=== PATIENT | male | born 1985 | race Caucasian/White ===

== ENCOUNTER 2024-01-24 09:37 | Inpatient (IN) | payer MEDICAID ==
[~2024-01-24] VITALS: Ht 172.7 cm; Wt 83.8 kg
[2024-01-24 10:41] LABS: BASOPHILS % (AUTO) 0.7 % (0-1); EOSINOPHILS # (AUTO) 0.1 X10'3 (0-0.9); EOSINOPHILS % (AUTO) 1.7 % (0-6); HEMATOCRIT 41.1 % (42.0-52.0); LYMPHOCYTES # (AUTO) 2.1 X10'3 (1.1-4.8); LYMPHOCYTES % (AUTO) 33.7 % (21-51); MEAN CORPUSCULAR HEMOGLOBIN 31.3 PG (27.0-31.0); MEAN PLATELET VOLUME 7.4 FL (7.4-10.4); MONOCYTES # (AUTO) 0.5 X10'3 (0-0.9); MONOCYTES % (AUTO) 8.3 % (2-12); NEUTROPHILS # (AUTO) 3.5 X10'3 (1.8-7.7); NEUTROPHILS % (AUTO) 55.6 % (42-75); PLATELET COUNT 248 X10'3 (140-440); RED BLOOD COUNT 4.47 X10'6 (4.70-6.10); RED CELL DISTRIBUTION WIDTH 14.3 % (11.5-14.5); WHITE BLOOD COUNT 6.2 X10'3 (4.5-11.0)
[2024-01-24 11:40] LABS: ALBUMIN 3.6 G/DL (3.4-5.0); ANION GAP 7 (8-16); BLOOD UREA NITROGEN 17 MG/DL (7-18); CALCIUM 8.5 MG/DL (8.5-10.1); CHLORIDE 104 MMOL/L (99-107); CREATININE 0.74 MG/DL (0.60-1.10); ETHANOL < 10 MG/DL (<10); GLUCOSE 96 MG/DL (70-104); POTASSIUM 3.5 MMOL/L (3.5-5.1); SODIUM 141 MMOL/L (135-145); THYROID STIMULATING HORMONE 0.76 ulU/ml (0.34-4.50); TOTAL CARBON DIOXIDE 29.8 MMOL/L (24-32); eCRCL 130 ML/MIN; eGFR > 90 ML/MIN
[2024-01-24 15:27] LABS: BILIRUBIN,URINE NEGATIVE (Neg); CLARITY,URINE CLEAR (Clear); COLOR,URINE YELLOW (Yellow); GLUCOSE, URINE NEGATIVE (Neg); KETONES,URINE NEGATIVE (Neg); LEUKOCYTE ESTERASE ,URINE NEGATIVE (Neg); NITRITES, URINE NEGATIVE (Neg); OCCULT BLOOD,URINE NEGATIVE (Neg); PROTEIN,URINE TRACE mg/dl (Neg)
[2024-01-24 15:29] LABS: UA COLLECTION TYPE CLN CATCH MIDSTREAM
[2024-01-24 15:34] LABS: MUCUS STRANDS FEW /LPF (Neg)
[2024-01-24 15:35] LABS: BACTERIA,URINE NONE SEEN /HPF (Neg); RBC,URINE 0-2 /HPF (0-2); SQUAMOUS EPITHELIAL CELL,UR FEW /LPF (FEW); WBC,URINE 0-4 /HPF (0-4)
[2024-01-24 15:44] LABS: URINE AMPHETAMINE SCREEN POSITIVE (Neg); URINE BARBITUATE SCREEN NEGATIVE (Neg); URINE BENZODIAZEPINES SCREEN NEGATIVE (Neg); URINE CANNABINOID SCREEN NEGATIVE (Neg); URINE COCAINE SCREEN NEGATIVE (Neg); URINE METHADONE SCREEN NEGATIVE (Neg); URINE OPIATE SCREEN NEGATIVE (Neg); URINE PHENCYCLIDINE SCREEN NEGATIVE (Neg)
[2024-01-24] MEDS: OLANZapine 5mg rapidly disint. tablet PO ONE (18:55)
[2024-01-24] MEDS ORDERED: NO HOME MEDS (21:01)
[2024-01-25 13:30] VITALS: BP 104/65; PULSE 75; RESP 16; TEMP 97.5; O2SAT 100
[2024-01-25] MEDS ORDERED: mag hydrox/Alum hydrox/simeth 30ml oral suspension PO PRN (13:50)
[2024-01-25] MEDS ORDERED: magnesium hydroxide 30ml (MOM) UD suspension PO PRN (13:50)
[2024-01-25] MEDS ORDERED: loperamide 2mg capsule PO PRN (13:50)
[2024-01-25] MEDS ORDERED: acetaminophen 325mg tablet PO PRN (13:50)
[2024-01-25 14:21] VITALS: RESP 16; O2SAT 100
[2024-01-25 19:00] VITALS: RESP 16; O2SAT 99
[2024-01-25 19:44] VITALS: BP 104/63; PULSE 86; RESP 20; TEMP 97.9; O2SAT 99
[2024-01-26 07:00] VITALS: RESP 16; O2SAT 99
[2024-01-26 08:00] VITALS: BP 113/53; PULSE 70; RESP 16; TEMP 97.4; O2SAT 99
[2024-01-26 09:18] LABS: HEMOGLOBIN A1C 5.6 % (4.5-6.2)
[2024-01-26 09:24] LABS: CHOL/HDL RATIO 2.7 (0.00-4.99); CHOLESTEROL 139 MG/DL (0-200); HDL CHOLESTEROL 52 MG/DL (35-60); LDL CHOLESTEROL 79 MG/DL (50-100); TRIGLYCERIDES 95 MG/DL (20-135)
[2024-01-26 19:00] VITALS: BP 117/65; PULSE 78; RESP 18; TEMP 97.9; O2SAT 96; O2SAT 98
[2024-01-26] MEDS: acetaminophen 325mg tablet PO PRN (19:29)
[2024-01-27 07:00] VITALS: RESP 16; O2SAT 95
[2024-01-27 08:00] VITALS: BP 110/89; PULSE 84; RESP 16; TEMP 97.7; O2SAT 95
[2024-01-27] MEDS: aripiprazole 10MG tablet PO SCH (10:22)
[2024-01-27 19:00] VITALS: BP 131/76; PULSE 79; RESP 16; TEMP 97.3; O2SAT 96
[2024-01-27] MEDS: traZODone 50mg tablet PO SCH (20:27)
[2024-01-28 07:00] VITALS: RESP 16; O2SAT 95
[2024-01-28 08:00] VITALS: BP 126/84; PULSE 88; RESP 16; TEMP 97.1; O2SAT 97
[2024-01-28 19:00] VITALS: RESP 16; O2SAT 97
[2024-01-28] MEDS: benztropine 1mg tablet PO SCH (19:54)
[2024-01-28 20:00] VITALS: BP 121/80; PULSE 82; RESP 16; TEMP 97.6; O2SAT 97
[2024-01-28] MEDS: traZODone 50mg tablet PO SCH (21:59)
[2024-01-29 07:00] VITALS: RESP 16; O2SAT 96
[2024-01-29 08:00] VITALS: BP 125/86; PULSE 98; RESP 16; TEMP 97.5; O2SAT 96
[2024-01-29 19:54] VITALS: BP 141/87; PULSE 60; RESP 20; TEMP 98.2; O2SAT 98
[2024-01-30 07:00] VITALS: RESP 18; O2SAT 98
[2024-01-30 08:00] VITALS: BP 120/84; PULSE 78; RESP 18; TEMP 97.1; O2SAT 98
[2024-01-30 19:00] VITALS: BP 131/86; PULSE 89; RESP 16; TEMP 97.6; O2SAT 96
[2024-01-30] MEDS: mineral oil/petrolatum, white cream 113gm jar TP SCH (19:41)
[2024-01-31 07:00] VITALS: BP 111/72; PULSE 84; RESP 16; TEMP 97.6; O2SAT 98
[2024-01-31 19:40] VITALS: RESP 18; O2SAT 98
[2024-01-31 20:00] VITALS: BP 113/74; PULSE 92; RESP 16; TEMP 98.6; O2SAT 100
[2024-02-01 07:00] VITALS: BP 127/81; PULSE 85; RESP 16; TEMP 98; O2SAT 98
[2024-02-01] MEDS: aripiprazole 15 MG tablet PO SCH (08:15)
[2024-02-01 19:00] VITALS: BP 109/69; PULSE 81; RESP 16; RESP 18; TEMP 98.7; O2SAT 99
[2024-02-02 07:00] VITALS: RESP 16; O2SAT 98
[2024-02-02 08:00] VITALS: BP 120/71; PULSE 88; RESP 16; TEMP 97.6; O2SAT 98
[2024-02-02 19:53] VITALS: RESP 16; O2SAT 99
[2024-02-02 19:59] VITALS: BP 109/51; PULSE 65; RESP 16; TEMP 98.8; O2SAT 99
[2024-02-03 08:00] VITALS: BP 143/51; PULSE 69; RESP 16; TEMP 97; O2SAT 100
[2024-02-03 19:26] VITALS: BP 118/52; PULSE 76; RESP 20; TEMP 97.7; O2SAT 97
[2024-02-04 07:00] VITALS: RESP 16; O2SAT 98
[2024-02-04 07:22] VITALS: BP 106/82; PULSE 73; RESP 16; TEMP 97.8; O2SAT 98
[2024-02-04 19:00] VITALS: RESP 16; O2SAT 97
[2024-02-04 19:43] VITALS: BP 115/67; PULSE 72; RESP 16; TEMP 98.6; O2SAT 97
[2024-02-05 07:00] VITALS: RESP 16; O2SAT 99
[2024-02-05] MEDS: aripiprazole 10MG tablet PO SCH (07:52)
[2024-02-05 08:00] VITALS: BP 123/84; PULSE 69; RESP 16; TEMP 97.3; O2SAT 99
[2024-02-05 20:00] VITALS: BP 122/76; PULSE 94; RESP 16; TEMP 97.5; O2SAT 96
[2024-02-06 08:00] VITALS: BP 115/80; PULSE 88; RESP 16; TEMP 98.3; O2SAT 97
[2024-02-06 19:51] VITALS: BP 101/68; PULSE 92; RESP 16; TEMP 98.6; O2SAT 98
[2024-02-07 07:00] VITALS: RESP 16; O2SAT 98
[2024-02-07 08:00] VITALS: BP 121/62; PULSE 74; RESP 16; TEMP 98.3; O2SAT 98
[2024-02-07] MEDS: aripiprazole 400mg suspension ER syringe IM ONE (08:53)
[2024-02-07 19:58] VITALS: RESP 16
[2024-02-07 20:53] VITALS: BP 106/58; PULSE 68; RESP 16; TEMP 97.4; O2SAT 98
[2024-02-08 07:00] VITALS: RESP 20; O2SAT 96
[2024-02-08 08:00] VITALS: BP 99/71; PULSE 81; RESP 20; TEMP 97.8; O2SAT 96
[2024-02-08 19:00] VITALS: RESP 16; O2SAT 97
[2024-02-08 20:00] VITALS: BP 108/61; PULSE 74; RESP 16; TEMP 98.1; O2SAT 97
[2024-02-09 07:00] VITALS: RESP 20; O2SAT 97
[2024-02-09 08:00] VITALS: BP 99/73; PULSE 76; RESP 20; TEMP 97.6; O2SAT 97
[2024-02-09 19:00] VITALS: RESP 18; O2SAT 97
[2024-02-09 19:38] VITALS: BP 100/56; PULSE 74; RESP 18; TEMP 98.3; O2SAT 97
[2024-02-10 07:30] VITALS: BP 96/56; PULSE 93; RESP 12; TEMP 97.9; O2SAT 98
[2024-02-10 08:00] VITALS: RESP 12; O2SAT 98
[2024-02-10] MEDS ORDERED: ARIP10TA87 PO (11:08)
[2024-02-10] MEDS ORDERED: TRAZ-251 PO (11:08)
[2024-02-10] MEDS ORDERED: COG1T PO (11:08)
[2024-02-10 19:40] VITALS: RESP 18; O2SAT 100
[2024-02-10 20:00] VITALS: BP 100/61; PULSE 79; RESP 18; TEMP 98.3; O2SAT 97
[2024-02-11 07:30] VITALS: BP 105/60; PULSE 61; RESP 16; TEMP 98.6
[2024-02-11 08:00] VITALS: RESP 16; O2SAT 98
== END 2024-02-11 14:41 | disposition home or self-care (01) | DRG 751 ==
LOC: EDBD 09:38 → ER 09:38 → UNDOADMIN 01-25 12:28 → ED HOLD 01-25 12:28 → ADULT MH 01-25 13:31
PROVIDERS: ADMIT Psychiatry & Neurology Psychiatry; ATTEND Psychiatry & Neurology Psychiatry
PROC: GZHZZZZ Group Psychotherapy (ICD-10-PCS; principal; 2024-01-26)
PROC: GZ51ZZZ Individual Psychotherapy, Behavioral (ICD-10-PCS; 2024-01-26)
DX: F29 Unspecified psychosis not due to a substance or known physiological condition (principal); F15.10 Other stimulant abuse, uncomplicated; M20.42 Other hammer toe(s) (acquired), left foot; Z20.822 Contact with and (suspected) exposure to COVID-19; M20.41 Other hammer toe(s) (acquired), right foot; Z59.00 Homelessness unspecified; Z79.899 Other long term (current) drug therapy
CPT/HCPCS: 36415; 80048; 80061; 80305; 80320; 81001; 83036; 84443; 85025; 87081; 87811; 99285

== ENCOUNTER 2024-02-14 08:10 | Emergency (ER) | payer MEDICAID ==
[~2024-02-14] VITALS: Ht 175.3 cm; Wt 84.7 kg
[~2024-02-14 08:10] MED LIST: ARIP10TA87 PO; COG1T PO; TRAZ-251 PO
[2024-02-14 08:15] VITALS: BP 141/88; PULSE 94; RESP 18; TEMP 97.8; O2SAT 97
[2024-02-14 08:56] LABS: BILIRUBIN,URINE NEGATIVE (Neg); CLARITY,URINE CLEAR (Clear); COLOR,URINE YELLOW (Yellow); GLUCOSE, URINE NEGATIVE (Neg); KETONES,URINE NEGATIVE (Neg); LEUKOCYTE ESTERASE ,URINE NEGATIVE (Neg); NITRITES, URINE NEGATIVE (Neg); OCCULT BLOOD,URINE TRACE-INTACT (Neg); PROTEIN,URINE TRACE mg/dl (Neg); UROBILINOGEN,URINE 0.2 E.U/dL (0.2-1.0)
[2024-02-14 08:57] LABS: BASOPHILS % (AUTO) 0.7 % (0-1); EOSINOPHILS % (AUTO) 0.4 % (0-6); HEMATOCRIT 45.4 % (42.0-52.0); HEMOGLOBIN 15.2 g/dl (14.0-17.9); LYMPHOCYTES # (AUTO) 1.9 X10'3 (1.1-4.8); LYMPHOCYTES % (AUTO) 27.1 % (21-51); MEAN CORPUSCULAR HGB CONC 33.5 g/dL (33.0-36.5); MEAN CORPUSCULAR VOLUME 92.7 FL (78-98); MONOCYTES # (AUTO) 0.4 X10'3 (0-0.9); MONOCYTES % (AUTO) 6.3 % (2-12); NEUTROPHILS # (AUTO) 4.5 X10'3 (1.8-7.7); NEUTROPHILS % (AUTO) 65.5 % (42-75); PLATELET COUNT 383 X10'3 (140-440); RED BLOOD COUNT 4.89 X10'6 (4.70-6.10); RED CELL DISTRIBUTION WIDTH 14.9 % (11.5-14.5); WHITE BLOOD COUNT 6.9 X10'3 (4.5-11.0)
[2024-02-14 09:02] LABS: UA COLLECTION TYPE CLN CATCH MIDSTREAM
[2024-02-14 09:04] LABS: BACTERIA,URINE FEW /HPF (Neg); FINE GRANULAR CAST 0-3 /LPF (NEGATIVE); RBC,URINE 0-2 /HPF (0-2); SQUAMOUS EPITHELIAL CELL,UR FEW /LPF (FEW); URINE AMPHETAMINE SCREEN POSITIVE (Neg); URINE BARBITUATE SCREEN NEGATIVE (Neg); URINE BENZODIAZEPINES SCREEN NEGATIVE (Neg); URINE CANNABINOID SCREEN NEGATIVE (Neg); URINE COCAINE SCREEN NEGATIVE (Neg); URINE METHADONE SCREEN NEGATIVE (Neg); URINE OPIATE SCREEN NEGATIVE (Neg); URINE PHENCYCLIDINE SCREEN NEGATIVE (Neg); WBC,URINE 0-4 /HPF (0-4)
[2024-02-14 09:22] LABS: ALBUMIN 4.1 G/DL (3.4-5.0); ANION GAP 9 (8-16); BLOOD UREA NITROGEN 16 MG/DL (7-18); BUN/CREATININE RATIO 18.8 (10.0-20.0); CALCIUM 9.3 MG/DL (8.5-10.1); CHLORIDE 104 MMOL/L (99-107); CREATININE 0.85 MG/DL (0.60-1.10); ETHANOL < 10 MG/DL (<10); GLUCOSE 94 MG/DL (70-104); POTASSIUM 3.8 MMOL/L (3.5-5.1); SODIUM 142 MMOL/L (135-145); THYROID STIMULATING HORMONE 1.72 ulU/ml (0.34-4.50); TOTAL CARBON DIOXIDE 28.6 MMOL/L (24-32); eCRCL 116 ML/MIN; eGFR > 90 ML/MIN
== END 2024-02-14 12:09 | disposition home or self-care (01) ==
LOC: ER 08:11
DX: F32.A Depression, unspecified (principal); F29 Unspecified psychosis not due to a substance or known physiological condition; Z88.6 Allergy status to analgesic agent; Z20.822 Contact with and (suspected) exposure to COVID-19
CPT/HCPCS: 36415; 80048; 80305; 80320; 81001; 84443; 85025; 87811; 99283; 99284

== ENCOUNTER 2024-02-19 17:13 | Emergency (ER) | payer MEDICAID ==
[~2024-02-19] VITALS: Ht 175.3 cm; Wt 95.0 kg
[2024-02-19 17:20] VITALS: TEMP 98
== END 2024-02-19 18:23 | disposition left against medical advice (07) ==
LOC: ER 17:14
DX: R53.81 Other malaise (principal); Z53.21 Procedure and treatment not carried out due to patient leaving prior to being seen by health care provider